=== PATIENT | female | born 1955 | race Caucasian/White ===

== ENCOUNTER 2017-11-19 12:12 | Day surgery (SDC) | payer OTHER ==
[2017-11-19] MEDS ORDERED: MIDAZOLAM 1 MG/ML 2 ML INJ ×2 (14:17→14:18)
[2017-11-19] MEDS ORDERED: FENTAnyl 50 MCG/ML VIAL (14:17)
== END 2017-11-19 17:38 | disposition home or self-care (01) ==
LOC: GIL 12:12
DX: Z12.11 Encounter for screening for malignant neoplasm of colon (principal); K63.89 Other specified diseases of intestine; I10 Essential (primary) hypertension; E78.5 Hyperlipidemia, unspecified
CPT/HCPCS: 45378